=== PATIENT | male | born 1940 | race Caucasian/White ===

== ENCOUNTER 2017-07-08 07:19 | Inpatient (IN) | payer OTHER ==
[2017-07-06 14:38] VITALS: BMI 24.7
[2017-07-08] MEDS ORDERED: DEXAMETHASONE SOD PHOSPHATE/PF 10 MG/ML SDV ONE (09:05)
[2017-07-08] MEDS ORDERED: ROPIVACAINE HCL 0.5% 30ML VIAL ONE (09:05)
[2017-07-08] MEDS ORDERED: MIDAZOLAM HCL 2 MG/2 ML SINGLE DOSE VIAL ONE ×2 (09:07)
[2017-07-08] MEDS ORDERED: PROPOFOL 20 ML ONE (09:55)
[2017-07-08] MEDS ORDERED: ceFAZolin SODIUM 1 GM VIAL ONE (09:56)
[2017-07-08] MEDS ORDERED: NIACIN 500 MG TABLET PO SCH (10:00)
--- NOTE | 2017-07-08 10:07 | HP ---
Satellite [facility] - Chief Complaint Chief Complaint: right shoulder pain - Past Medical History Allergies/Adverse Reactions: Allergies Allergy/AdvReac Type Severity Reaction Status Date / Time No Known Allergies Allergy Verified 07/08/17 08:05 - Current Medications Current Medications: Home Medications Medication Instructions Recorded Ascorbic Acid [Vitamin C -] 500 mg PO DAILY 07/06/17 Cholecalciferol (Vitamin D3) 400 unit PO DAILY 07/06/17 [Vitamin D -] Levothyroxine [Synthroid -] 25 mcg PO DAILY 07/06/17 Multivitamins [Multivit ([facility] 1 tab PO DAILY 07/06/17 Formulary)] Niacin [Niacin ER] 1,000 mg PO DAILY 07/06/17 Hydrocodone/Acetaminophen [[place] 1 each PO Q6H PRN #40 tablet MDD 4 07/08/17 5-325 Tablet] Satellite Physical Exam - Physical Examination Vital Signs: Vital Signs Period Temp Pulse Resp BP Sys/Thompson Pulse Ox Last 24 Hr 50 16 126/67 99 General Appearance: Well Nourished, Well Developed, Alert & Oriented x3 ENT: Clear Lung: Normal air movement Heart: Regular rate & rhythm Extremities: Other (right shoulder- + ttp, decr rom, nvi MRI shows chronic RC arthropathy, djd) Neurological: Intact, Alert, Oriented Satellite Impression/Plan - Impression/Plan Impression: right shoulder chronic rc arthropathy, djd Operative Procedure: right reverse TSA Date to be Performed: 07/08/17
[2017-07-08] MEDS ORDERED: ePHEDrine SULFATE 50 MG/1 ML AMPULE ONE (10:13)
[2017-07-08] MEDS ORDERED: ceFAZolin SODIUM 1 GM VIAL IVPB ONE (10:25)
[2017-07-08] MEDS ORDERED: DEXAMETHASONE SOD PHOSPHATE 4 MG/1 ML VIAL ONE (11:12)
[2017-07-08] MEDS ORDERED: MULTIVITAMINS (DAILY MVI) TABLET (FP) PO SCH (12:00)
--- NOTE | 2017-07-08 12:58 | OP ---
Operative Note - Note: [facility]ative [facility]: [facility] Pre-Operative Diagnosis: right shoulder chronic rotator cuff arthropathy Operation: right reverse total shoulder replacement Post-Operative Diagnosis: Same as Pre-op Surgeon: Kristian Blair Dye Range Operator: Davonte Ahmadi Anesthesiologist/TRIBAL JUDGE: Mackenzie Brooks Anesthesia: General, Local Specimens Removed: humeral head Estimated Blood Loss (mls): 50 Operative Report Dictated: Yes
[2017-07-08] MEDS ORDERED: ACETAMINOPHEN 325 MG TABLET (FP) PO PRN (13:11)
[2017-07-08] MEDS ORDERED: ONDANSETRON 4 MG/2 ML VIAL IVPUSH PRN (13:11)
[2017-07-08] MEDS ORDERED: LACTATED RINGERS SOLUTION 1,000 ML IV SCH (13:15)
[2017-07-08] MEDS ORDERED: LEVOTHYROXINE NA 25 MCG TABLET (FP) PO SCH (15:00)
[2017-07-08] MEDS ORDERED: oxyCODONE HCL 5 MG TABLET PO PRN (15:20)
[2017-07-08] MEDS: morphine CARPU-JECT 2 MG/1 ML DISP.SYRIN IVPUSH PRN (21:50)
[2017-07-09] MEDS: morphine CARPU-JECT 2 MG/1 ML DISP.SYRIN IVPUSH PRN ×2 (06:24→10:25)
[2017-07-09 06:44] VITALS: BP 94/58; PULSE 60; TEMP 98.9
--- NOTE | 2017-07-09 09:07 | PN ---
Progress Note (short form) - Note Progress Note: Ortho Pt seen and examined s/p right reverse TSA pod #1 Selected Entries 07/09/17 06:42 Temperature 98.9 F Pulse Rate 60 Respiratory 20 Rate Blood Pressure 94/58 dressing c/d/i, good rom elbow, wrist and hand nvi a/p PT ROM exercises d/c home today f/u in the office in 1 week
--- NOTE | 2017-07-09 09:08 | DS ---
Physical Examination Vital Signs: Vital Signs Temperature 98.9 F 07/09/17 06:42 Pulse Rate 60 07/09/17 06:42 Respiratory Rate 20 07/09/17 06:42 Blood Pressure 94/58 07/09/17 06:42 O2 Sat by Pulse Oximetry (%) 96 07/08/17 21:00 Discharge Summary Reason For Visit: OSTEOARTHRITIS RIGHT SHOULDER Procedures: Principal: s/p right reverse TSA Hospital Course: admitted for elective right TSA, uneventful post-op, stable for d/c Condition: Good - Instructions Diet, Activity, Other Instructions: Post -op Instruction Sheet - Shoulder Surgery - Sling/Immobilizer : You have been placed in a sling. As long as you are wearing this, your shoulder is well protected. You may come out of the sling to dress , or do exercises as directed. You may bend and straighten the elbow, and move your wrist and fingers, but DO NOT use your own muscles to move your elbow away from your side until directed to do so. Please sleep with the sling on. You may find it more comfortable to sleep with a small pillow behind your elbow, or in a recliner. To wash your armpit, you may lean slightly forward and let your arm dangle slightly away from your side and wash with a washcloth. - Use an ice bag/pack on the shoulder for 15 minutes every 2 hours. - Pain medication was sent to your Pharmacy. - Keep your dressing clean and dry. Please call the office to make an appointment for 1 week after surgery. Your dressing will be removed at that time. - No Lifting. - Starting 1-2 days after surgery, you may take your arm out of the sling 3 times a day to bend and straighten your elbow and wrist to prevent stiffness. - Please call the office at [phone] if there are any questions or concerns. Referrals: Kristian Blair MD [Staff Physician] - Disposition: HOME - Home Medications Comprehensive Discharge Medication List: Ambulatory Orders Ascorbic Acid [Vitamin C -] 500 mg PO DAILY 07/06/17 Cholecalciferol (Vitamin D3) [Vitamin D -] 400 unit PO DAILY 07/06/17 Levothyroxine [Synthroid -] 25 mcg PO DAILY 07/06/17 Multivitamins [Multivit ([facility] Formulary)] 1 tab PO DAILY 07/06/17 Niacin [Niacin ER] 1,000 mg PO DAILY 07/06/17 Hydrocodone/Acetaminophen [[place] 5-325 Tablet] 1 each PO Q6H PRN #40 tablet MDD 4 07/08/17
--- NOTE | 2017-07-09 10:01 | OP ---
DATE OF OPERATION: DATE OF DICTATION: 07/08/2017 PREOPERATIVE DIAGNOSIS: Right shoulder rotator cuff arthropathy. POSTOPERATIVE DIAGNOSIS: Right shoulder rotator cuff arthropathy. PROCEDURE: Right shoulder reverse total shoulder replacement. SURGEON: Kristian Blair M.D. GIS PROGRAMMER: Silvia Tse, Mackenzie Brooks CRNA ANESTHESIA: Right interscalene block and LMA anesthesia. DRAINS: None. COMPLICATIONS: None. BLOOD LOSS: 75 cc. BLOOD GIVEN: None. SPECIMEN: Humeral head. FLUID REPLACEMENT: 1000 mL. INDICATION: This patient is a 76-year-old male with preoperative diagnosis of severe right shoulder pain, weakness, decreased range of motion, arthritis and rotator cuff arthropathy. After extensive preoperative discussions where we discussed the potential risks, complications, alternatives, benefits to surgery versus nonsurgical treatment, the patient has elected to undergo this procedure. Specifically, the patient understands he will never regain full range of motion or full strength. Lifting his arm above the plane of the shoulder will be difficult. He understands this and other expected results. DESCRIPTION OF PROCEDURE: Patient brought to operating room, peripheral IV placed, IV sedation given, right interscalene block was performed, 1 g of IV Ancef was given, LMA anesthesia was induced. He was placed in the beach chair position with ample padding throughout. The right upper extremity was prepped and draped in sterile fashion, and the bony landmarks marked out with a marking pen. Deltopectoral approach incision was marked out with a marking pen, made with a number 15 scalpel blade. Satisfactory hemostasis was achieved with Bovie cautery. Self-retaining Weitlaner retractors were placed into the wound. A medial and lateral flap were raised. This exposed the deltoid and found the deltopectoral interval and dissected down with the Metzenbaum scissors. I retracted the cephalic vein laterally and bluntly dissected with my index finger down to the clavipectoral fascia. Weitlaner retractors were placed deeper into the wound. The fascia was exposed. The almost vertical incision slightly lateral was made with a Bovie cautery. Of note, the patient's subscapularis tendon was extremely thin. Biceps tendon was completely gone, and the clavipectoral fascia was also extremely thin. The proximal humerus was exposed. A periosteal elevator was used to release the tissue medially and laterally, exposing the humeral head in the next 2 inches of the proximal humerus. Great care was taken to preserve all surrounding soft tissue structures and neurovascular bundles. Next we used the external cutting guide and used an oscillating saw to do a provisional cut of the humeral head articular surface. This was passed off the field as specimen. Next, in order to expose and have access to the glenoid, we used a Fukuda retractor and Melanie retractors, and we were able to expose the glenoid. Labrum was partially removed in front where it was blocking a portion of the glenoid, and there was a superiorly, which we also removed. Next using the standard [employer] reverse total shoulder replacement system, we used the glenoid guide so that it was flush to the inferior portion of the glenoid and put in a gorman Pauline pin into its center position. We checked the position before we used the 36-mm glenoid reamer, reamed down symmetrically so that we had some inferior hemisphere bleeding subcortical bone. Next we used a rongeur to remove a little bit more of the superior bony rim. Next we put down the glenoid plate, held it in place and looked good, and then put it down over the Pauline pin. Then I put it down in the handle guide so it was even with the inferior portion of the glenoid again. I checked it superiorly, medially, and laterally and overall it looked quite good, therefore the center screw which was 3.5 mm in diameter was placed through the center hole, locking the glenoid in place, pressing it down onto the glenoid. Overall it looked quite good. Next using the standard technique, I put in 4 screws superior with 16 mm. The inferior was 20 mm, anteriorly and posteriorly were also 16 mm. It locked in the plate and found good bony purchase. Next we prepared the humeral shaft in a standard way, using the canal finder and sequential broaches until we put in a number 9 mm stem. This was quite good. There was no motion to it. Used the calcar reamer, underhand power to take away extra bone to get the appropriate plane. We then, over the glenoid plate, we put on the actual 36-mm glenoid component with the Ismael taper, and hit it down in place with the mallet. Next we put on the trial reverse femoral cup, reduced it onto the glenoid, and overall was quite good. Patient had excellent range of motion. There was no instability, in fact it was quite difficult to dislocate. Next the humeral component was dislocated, trial removed, and the actual Naz reverse total shoulder replacement system stem number 9 was placed down into the humeral canal, continuing to use the 30-degree post as a guide parallel to the forearm. It went down quite nicely. There was excellent fixation in the non-cemented technique. I then put on a plus 4 stem, and the 36-mm component cup. Also banged this down with the mallet onto the humeral stem with the polyethylene cup. It came down quite nicely. Overall, everything looked quite good. The shoulder was reduced. It had excellent range of motion and stability. The area was copiously irrigated and washed out, and closure begun. Closure was done with number 1 Tricon sutures in the capsular layer over the component. This all came together quite nicely, adding a level of stability. Next did the deep fibers of the deltoid, and next the superficial fibers of the deltoid and the clavipectoral fascia over that, and then closed the deep dermal layer with 2-0 Vicryl sutures, and finally a 3-0 V-Loc suture to close the skin. It was then washed and dried and covered with [place] skin glue, and Aquacel dressing. Total operative time was 2 hours. There were no complications during the case. The patient tolerated the procedure well and was brought to ambulatory recovery in stable condition. Amanda [id number]
--- NOTE | 2017-07-09 10:53 | PN ---
Progress Note (short form) - Note Progress Note: Pt seen and examined. He is doing well on POD #1 s/p right total shoulder replacement. No pain in the shoulder. + c/o pain in the right medial biceps with arm motion. NVI in all distributions. Pt stable, doing well, ready for DC home today. F/U as an out pt in 1 week
--- NOTE | 2017-07-09 11:29 | PN ---
Progress Note (short form) - Note Progress Note: Anesthesia postop note 76 y/o M s/p GA for right shoulder replacement, interscalene nerve block for postop pain management POD#1, vss, aaox3, pain well controlled overnight, sensory motor intact distally No anesthesia complications.
--- NOTE | 2017-07-10 13:20 | PATH ---
Surgical Pathology Report Patient Name: FIORELLA DOWNS Med. Rec. #: [id number] /Age/Gender: 1940 (Age: 76) / M Account: [id number] Location: [address] [place] [address]/[facility] Taken: 07/08/2017 Received: 07/08/2017 Reported: 07/10/2017 Physicians: Kristian Blair M.D. Specimen(s) Received RIGHT HUMERAL HEAD Clinical History Osteoarthritis right shoulder Final Diagnosis BONE, RIGHT HUMERAL HEAD, REPLACEMENT: DEGENERATIVE JOINT DISEASE. Electronically Signed Rey Mondragon M.D. Gross Description Received in formalin labeled "right humeral head," is a 5.0 x 4.3 x 2.0 cm portion of bone, consistent with a humoral head. The margin of resection is smooth. The articular surface is camarena-yellow and focally granular. The underlying trabecular bone is yellow and hard. Also received within the same container is a 3.5 x 1.7 x 0.4 cm portion of hemorrhagic appearing bone. 21 Dealer sections are submitted in one cassette, following decalcification. /07/09/2017 [facility]07/09/2017
== END 2017-07-09 14:34 | disposition home or self-care (01) | DRG 483 ==
LOC: JSAMEDAYSX 07:19 → EDSTATUS 08:00 → J6S 19:20
PROVIDERS: ADMIT Orthopaedic Surgery; ATTEND Orthopaedic Surgery
PROC: 0RRJ0JZ Replacement of Right Shoulder Joint with Synthetic Substitute, Open Approach (ICD-10-PCS; principal; 2017-07-08 09:30)
DX: M19.011 Primary osteoarthritis, right shoulder (principal)
CPT/HCPCS: 73030-TC-RT; 88304-TC; 88311-TC; 94760; 97116-GP; 97161-GP